=== PATIENT | female | born 1970 | race Caucasian/White ===

== ENCOUNTER 2019-10-11 12:34 | Emergency (ER) | payer OTHER ==
[~2019-10-11] VITALS: Ht 170.2 cm; Wt 71.2 kg
[~2019-10-11 12:34] MED LIST: CALCIUM + VITA1 EACH PO; IBUPROFEN200 MG PO; PRENATAL VITAM1 EAC3 PO
[2019-10-11] MEDS ORDERED: CHLORDIAZEPOXID25 MG PO (16:12)
[2019-10-11] MEDS ORDERED: ONDANSETRON ODT8 MG PO (16:12)
--- NOTE | 2019-10-12 12:45 | EKG ---
[facility] [address] [facility] [place], [place] [address] Signed Sinus tachycardia Rightward axis Cannot rule out Inferior infarct , age undetermined Abnormal ECG No previous ECGs available Confirmed by TED LOZANO MD ([id number]) on 10/12/2019 12:44:55 PM Electronically Signed By: TED LOZANO MD 10/12/19 1245 PATIENT NAME: LOUIS MOORE Electrocardiogram DATE OF : 70 PHYSICIAN: TED LOZANO MD REPORT #: [id number] REPORT IS CONFIDENTIAL AND NOT TO BE RELEASED WITHOUT AUTHORIZATION
== END 2019-10-11 16:44 | disposition home or self-care (01) ==
LOC: ED 12:34
DX: G40.509 Epileptic seizures related to external causes, not intractable, without status epilepticus (principal); S02.5XXA Fracture of tooth (traumatic), initial encounter for closed fracture; S01.511A Laceration without foreign body of lip, initial encounter; F10.239 Alcohol dependence with withdrawal, unspecified; K70.9 Alcoholic liver disease, unspecified; F17.200 Nicotine dependence, unspecified, uncomplicated; W18.30XA Fall on same level, unspecified, initial encounter
CPT/HCPCS: 12011; 80053; 83735; 84703; 85025; 90471; 90715; 93005; 93010; 99285-25; J2060; J3411; J7030

== ENCOUNTER → 2019-10-15 | Emergency (ER) | payer OTHER ==
[~2019-10-15] VITALS: Ht 170.2 cm; Wt 71.2 kg
[~2019-10-15] MED LIST changes: +CHLORDIAZEPOXID25 MG PO; +ONDANSETRON ODT8 MG PO
--- OUTSIDE RECORDS SUMMARY | 2019-10-15 10:20 | XMS ---
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 - 2 Visits in 30 Days CARE PROVIDERS There are no care providers on record at this time. Carina has no Care Guidelines for this patient. L[facility] VISIT COUNT (12 MO.) [facility] T[facility] NOTE: Visits indicate total known visits. ED/C VISIT TRACKING (12 MO.) 10/15/2019 10:[address] [facility] [place] TYPE: Emergency COMPLAINT: - BLEEDING FROM MOUTH 10/11/2019 12:[address] 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
== END ==
LOC: ED 10:16
DX: S01.511A Laceration without foreign body of lip, initial encounter (principal); K70.9 Alcoholic liver disease, unspecified; D68.9 Coagulation defect, unspecified; D64.9 Anemia, unspecified; F41.9 Anxiety disorder, unspecified; Z87.891 Personal history of nicotine dependence; Z79.899 Other long term (current) drug therapy; X58.XXXA Exposure to other specified factors, initial encounter
CPT/HCPCS: 12011; 80053; 85025; 85610; 85730; 99283-25

== ENCOUNTER 2022-04-10 18:46 | Emergency (ER) | payer OTHER ==
[~2022-04-10] VITALS: Ht 170.2 cm; Wt 77.1 kg
[2022-04-10] MEDS ORDERED: TRAZODONE HCL50 MG PO (19:20)
[2022-04-10] MEDS ORDERED: SPIRONOLACTONE100 MG NG (19:20)
[2022-04-10] MEDS ORDERED: OXYCODONE HCL5 MG PO (19:20)
[2022-04-10] MEDS ORDERED: CONSTULOSE10 GM/15 M PO (19:20)
[2022-04-10] MEDS ORDERED: ESCITALOPRAM OX20 MG PO (19:20)
[2022-04-10] MEDS ORDERED: FUROSEMIDE20 MG PO (19:21)
[2022-04-10] MEDS ORDERED: POTASSIUM CHLO10 MEQ PO (19:21)
== END 2022-04-10 21:24 | disposition home or self-care (01) ==
LOC: ED 18:46
DX: S27.0XXA Traumatic pneumothorax, initial encounter (principal); S22.42XA Multiple fractures of ribs, left side, initial encounter for closed fracture; W17.89XA Other fall from one level to another, initial encounter; Z87.891 Personal history of nicotine dependence; Z79.899 Other long term (current) drug therapy
CPT/HCPCS: 71250; 80053; 85025; 99283-25